=== PATIENT | male | born 1950 | race Caucasian/White ===

== ENCOUNTER 2017-05-14 21:34 | Emergency (ER) | payer OTHER ==
[~2017-05-14] VITALS: Ht 167.6 cm; Wt 81.6 kg
[2017-05-14 21:38] VITALS: BP_SYST 143
[2017-05-14] MEDS ORDERED: TAMS0.4C96 PO (21:40)
[2017-05-14] MEDS ORDERED: ATEN-41 PO (21:40)
[2017-05-14] MEDS ORDERED: ASPI81TA2 PO (21:40)
[2017-05-14] MEDS ORDERED: OMEP40CA33 PO (21:40)
[2017-05-14] MEDS ORDERED: NOR10 PO (21:40)
[2017-05-14] MEDS ORDERED: CLOP75TA2 PO (21:40)
[2017-05-14] MEDS ORDERED: LIP80 PO (21:40)
[2017-05-14] MEDS ORDERED: FURO-150 PO (21:40)
[2017-05-14] MEDS ORDERED: NACL 0.9% 1,000 ML IV ONE (22:50)
[2017-05-14 23:18] LABS: BASOPHILS # (AUTO) 0.1 K/uL (0.0-0.2); BASOPHILS % (AUTO) 1.4 % (0.0-2.0); HEMATOCRIT 40.5 % (36-54); HEMOGLOBIN 13.4 g/dL (14.0-18.0); LYMPHOCYTES # (AUTO) 0.8 K/uL (1.0-5.5); LYMPHOCYTES % (AUTO) 7.8 % (20.5-51.5); MEAN CORPUSCULAR HEMOGLOBIN 30 pg (27-31); MEAN CORPUSCULAR HGB CONC 33 % (32-36); MEAN CORPUSCULAR VOLUME 91 fL (79.0-98.0); MONOCYTES # (AUTO) 0.5 K/uL (0.0-1.0); MONOCYTES % (AUTO) 4.6 % (1.7-9.3); NEUTROPHILS # (AUTO) 9.3 K/uL (1.8-7.7); NEUTROPHILS % (AUTO) 86.2 % (40.0-70.0); PLATELET COUNT (AUTO) 159 K/uL (130-430); RED BLOOD CELL COUNT(AUTO) 4.45 MIL/uL (4.2-6.2); RED CELL DISTRIBUTION WIDTH 12.4 % (9.0-15.0); WHITE BLOOD COUNT (AUTO) 10.7 K/uL (4.8-10.8)
[2017-05-14 23:19] LABS: BILIRUBIN,URINE NEGATIVE (NEGATIVE); CLARITY/URINE CLEAR (CLEAR); COLOR,URINE YELLOW (YELLOW); GLUCOSE,URINE NEGATIVE (NEGATIVE); KETONES,URINE NEGATIVE (NEGATIVE); LEUKOCYTE ESTERASE ,URINE NEGATIVE (NEGATIVE); NITRITE, URINE NEGATIVE (NEGATIVE); PROTEIN URINE 1+ (NEGATIVE); UROBILINOGEN,URINE 0.2 (0.2-1.0)
[2017-05-14 23:23] LABS: BLOOD, URINE TRACE (NEGATIVE)
[2017-05-14 23:28] LABS: BACTERIA,URINE MANY /HPF (None Seen); MUCUS,URINE 1+ /LPF (None Seen); RBC,URINE 0-3 /HPF (0-3)
[2017-05-14 23:28] LABS: CALCIUM 8.5 mg/dL (8.4-11.0); CREATININE 1.28 mg/dL (0.55-1.30); POTASSIUM 3.9 mmol/L (3.5-5.1)
[2017-05-14 23:29] LABS: HYALINE CASTS, URINE 0-10 /LPF (None Seen)
[2017-05-14 23:33] LABS: ALBUMIN 3.9 g/dL (3.4-4.8); TOTAL BILIRUBIN 0.8 mg/dL (0.0-1.0); TOTAL PROTEIN, SERUM 7.9 g/dL (6.4-8.3)
[2017-05-15] MEDS ORDERED: CIPROFLOXACIN HCL 500 MG TABLET PO ONE (01:00)
[2017-05-15] MEDS ORDERED: metroNIDAZOLE 500 MG TABLET PO ONE (01:00)
[2017-05-15 01:15] VITALS: BP_SYST 136
== END 2017-05-15 01:15 | disposition home or self-care (01) ==
LOC: SED 21:34
DX: K52.9 Noninfective gastroenteritis and colitis, unspecified (principal); I10 Essential (primary) hypertension; E78.00 Pure hypercholesterolemia, unspecified; Z79.82 Long term (current) use of aspirin; Z79.899 Other long term (current) drug therapy; Z98.890 Other specified postprocedural states
CPT/HCPCS: 36415; 74176; 80053; 81000; 85025; 87086; 96360; 96361; 99285; J7030